=== PATIENT | female | born 2000 | race Caucasian/White ===

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

== ENCOUNTER 2023-06-10 12:02 | Inpatient (IN) ==
[2023-06-10] MEDS ORDERED: OXYTOCIN 30 UNITS/NSS 30 UNITS/500 ML BAG IV PRN (12:19)
[2023-06-10] MEDS ORDERED: LIDOCAINE 1% LOCAL 20 ML VIAL INFIL PRN (12:19)
[2023-06-10] MEDS: LACTATED RINGER'S 1,000 ML IV PRN (12:39)
[2023-06-10 12:54] LABS: Hematocrit (blood only) 36.1 % (37.0-47.0); Hemoglobin 11.9 g/dl (12.0-16.0); Mean Corpuscular Hemoglobin 27.3 pg (25.0-34.0); Mean Corpuscular Volume 82.8 fL (80.0-100.0); Mean Platelet Volume 10.6 fL (9.4-12.4); Platelet Count 253 K/uL (130-400); RDW Coefficient of Variation 14.4 % (11.5-14.5); Red Blood Count 4.36 M/uL (4.20-5.40); White Blood Count 11.08 K/ul (4.8-10.8)
--- NOTE | 2023-06-10 13:24 | History & Physical Report ---
Date of Service June 10, 2023 Assessment & Plan (1) Supervision of normal intrauterine in primigravida: Plan Will admit patient to L&D for further monitoring and management VSS Fetus cat 1 EFW 64% (US from 01/20/23) Rh positive mother GBS negative Rubella immune Epidural prn Pitocin as needed Patient in agreement Admission and Anticipated Discharge Date Admission Date: June 10, 2023 History of Present Illness Chief Complaint: LABOR CHECK Primary Care Provider: Abbi Jhaveri MD Tati is a 22 y/o female with PMHx of PCOS who is currently at IUP 40 4/7 WGA with an EZEKIEL 06/06/23 as determined by US who is here for Labor check. Patient states that she has been feeling contractions every 7-8 minutes since 3 am this morning. She did not note a gush of fluid at this time. As the day went on, she was still feeling these contractions still approximately every 7-8 minutes but were gradually getting more intense. At around 8-9am she noted some watery discharge that did not feel like a gush of fluid, but was constant, meaning ankit ry time she would clean/dry herself, she would go to the bathroom again after a while and noted her underwear was full again. (+) movement (+) contractions (+) fluid loss (-) bloody show External FHT and external uterine monitors used * Category 1 tracing * Moderate FHT variability. Had regular appointments since 1st trimester. OB Labs: Blood Type O Positive 10/28/22 Antibody Screen NEGATIVE 10/28/22 Hemoglobin 11.5 g/dl (12.0-16.0) L 04/01/23 Hematocrit 33.4 % (37.0-47.0) L 04/01/23 Mean Corpuscular Volume 88.1 fL (80.0-100.0) 10/28/22 Platelet Count 268 K/uL (130-400) 10/28/22 Rubella IgG Antibody Immune (Immune) 10/28/22 Rapid Plasma Reagin Nonreactive (Nonreactive) 10/28/22 Hepatitis B Surface Antigen NEG (NEG) 10/22/17 Hepatitis B Surface Antigen. NON-REACTIVE (NON-REACTIVE) 10/28/22 Hepatitis C Antibody NEG (NEG) 10/22/17 Hepatitis C Antibody (EIA) NON-REACTIVE (NON-REACTIVE) 10/28/22 HIV (1&2) Ab and P24 Ag, 4th Gener NEG (NEG) 10/22/17 HIV (1&2) Ag and Ab Confirmation NON-REACTIVE (NON-REACTIVE) 10/28/22 Glucose 1 Hour 50 gm Load 148 mg/dl (70-130) H 12/23/22 Maternal Serum Alpha Fetoprotein 31.7 ng/mL 12/23/22 OB Optional Labs: Chlamydia trachomatis RNA Not Detected (NotDetected) 10/28/22 Neisseria gonorrhoeae RNA Not Detected (NotDetected) 10/28/22 Alpha Fetoprotein Triple Screen SEE NOTE 12/23/22 Labs Reviewed: horizon neg-akh low risk panorama--akh afp neg--akh Allergies Allergy/AdvReac Type Severity Reaction Status Date / Time No Known Drug Allergies Allergy Verified 06/09/23 14:00 Home Medications Medication Instructions Recorded Confirmed Type vit 168-iron 27 mg-folic cap PO 10/22/22 06/09/23 History acid 800 mcg-omega3 235 mg capsule (One-A-Day -1) aspirin 81 mg chewable tablet 81 mg PO DAILY 04/19/23 06/10/23 History Patient History Medical History (Updated 06/10/23 @ 13:21 by Erendira Rios MD) Supervision of normal intrauterine in primigravida PCOS (polycystic ovarian syndrome) Eczema Dysmenorrhea Allergic rhinitis Adjustment reaction with anxiety and depression Surgical History S/P tonsillectomy and adenoidectomy Family History Aunt Type 1 diabetes mellitus Ovarian cyst Unknown Hemorrhagic stroke Mother History of brain surgery Abused spouse Epilepsy Bipolar disorder Primary nocturnal enuresis Father Alcoholism Degeneration of thoracic or thoracolumbar intervertebral disc Grandmother Breast cancer Heart murmur Hypertension Thyroid disease Depression with anxiety Family/Other Breast cancer Social History (Updated 06/10/23 @ 12:23 by Adelaida Vincent, ANTWON) Smoking Status: Never smoker Second Hand Exposure: Yes (AUNT OUTSIDE); Do You Dip or Chew Tobacco: No; Hx Alcohol Use: No Hx Substance Use: No Preferred Language: Korean Communication Ability: Effective 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 Beliefs That Will Affect Care: None marital status: marital status details: Mandeep (23) [phone] Current Living Situation: Spouse Current Living Situation Comment: lives with spouse, 1 cat, 1 dog, sis in law changing litter current occupational status: employed and unemployed 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 Other Information That Helps Us Care for You: No Feels Safe at Home: Yes Safety Concerns: Feels Safe At This Time Childhood Exposure to Second-Hand Smoke: Yes Dental Care, Regularly: Yes Seatbelt Use: always Sunscreen Use: Yes Assistive Devices: None 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 Denies shortness of breath or respiratory difficulty. no chest pain and no palpitations no dysuria no headache(s) Physical Exam Physical Exam: General: Alert, oriented x3. Afebrile. No acute distress. Cardiac: Regular rate and rhythm, no murmurs/rubs/gallops. Respiratory: Clear to auscultation bilaterally a/p, no wheezes/rales/rhonchi. No increased work of breathing. Symmetrical chest rise. No respiratory distress. Abdomen: Gravid; FHR baseline of 135 - 140 bpm; Position: Vertex Pelvic: 4.5 / 80 / -[address] Mclaughlin Lower Extremities: Mild bilateral LE swelling. No deep calf pain. Tigist's negative bilaterally Results & Data Vital Signs (Past 12 Hours) Vital Signs Temp Pulse Resp BP Pulse Ox 06/10/23 13:11 76 100 06/10/23 12:25 36.5 C 20 06/10/23 12:21 86 112/72 Supervising Physician Co-Signing Physician Notes Resident Physician Supervision Note: I was present with [Name of resident] during the history and exam. I discussed the case with the resident and agree with the findings and plan as documented in the note. Any exceptions or clarifications are listed here: [None] Documented By: Alvin Mclaughlin MD, FACOG
[2023-06-10] MEDS: LIDOCAINE 2%/EPINEPHRINE 1:200,000 20 ML PF ONE (13:33)
[2023-06-10] MEDS: BUPIVACAINE 0.25% PF 30 ML VIAL ONE (13:35)
[2023-06-10] MEDS: fentANYL 2 MCG/ML BUPIVacaine 0.125%-NSS 100ML BAG ONE (13:36)
[2023-06-10] MEDS: SODIUM CHLORIDE 0.9% PF INJ 10 ML VIAL ONE (13:36)
[2023-06-10] MEDS ORDERED: LIDOCAINE 2% MPF LOCAL 5 ML VIAL EPI PRN (13:43)
[2023-06-10] MEDS ORDERED: ONDANSETRON INJ 2 MG/ML 2 ML VIAL IV PRN (13:43)
[2023-06-10] MEDS ORDERED: diphenhydrAMINE 50 MG/ML VIAL IV PRN (13:43)
[2023-06-10] MEDS ORDERED: NALBUPHINE HCL 5 MG in SYRINGE 0 ML IV PRN (13:43)
[2023-06-10] MEDS ORDERED: ePHEDrine sulfate 50 MG/ML AMP IV PRN (13:43)
[2023-06-10] MEDS ORDERED: fentaNYL citrate PF 100 MCG/2 ML VIAL EPI PRN (13:43)
[2023-06-10] MEDS ORDERED: SODIUM CHLORIDE 0.9% PF INJ 10 ML VIAL EPI PRN (13:43)
[2023-06-10] MEDS ORDERED: NALOXONE HCL 0.4 MG/1 ML VIAL/CARP IV PRN (13:43)
[2023-06-10] MEDS ORDERED: ROPIVACAINE 0.5% PF 5 MG/ML 20 ML VIAL EPI PRN (13:43)
[2023-06-10] MEDS ORDERED: BUPIVACAINE 0.25% PF 30 ML VIAL EPI PRN (13:43)
[2023-06-10] MEDS ORDERED: NALOXONE HCL 1 MG in SODIUM CHLORIDE 0.9% 1,000 ML IV PRN (13:43)
--- NOTE | 2023-06-10 13:43 | Anesthesiology Consultation ---
Date of Service June 10, 2023 Assessment & Plan Chart Review Chart Review: Patient NOT seen in Pre Admission Testing and Acceptable Risk for Labor Epidural Consults Requested none ASA ASA2 Proposed Anesthesia Anesthesia Type: Labor Epidural Risk / Benefits Reviewed With: PT / POA / Parent / Guardian, Accepts Plan and Informed Consent Obtained History Height/Weight Height: 5 ft Weight: 86.183 kg Allergies Allergy/AdvReac Type Severity Reaction Status Date / Time No Known Drug Allergies Allergy Verified 06/09/23 14:00 Medications Home Medications Medication Instructions Recorded Confirmed Last Taken vit 168-iron 27 mg-folic cap PO 10/22/22 06/09/23 06/09/23 acid 800 mcg-omega3 235 mg capsule (One-A-Day -1) aspirin 81 mg chewable tablet 81 mg PO DAILY 04/19/23 06/10/23 06/09/23 Active Medications Generic Name Dose Route Start Last Admin Trade Name Freq PRN Reason Stop Dose Admin Lactated Ringer's 1,000 mls @ 125 mls/hr 06/10/23 12:19 06/10/23 13:31 Lr IV 06/12/23 12:18 999 mls/hr .Q8H PRN Administration L&D Protocol Protocol Past Medical History Medical History (Updated 06/10/23 @ 13:21 by Erendira Rios MD) Supervision of normal intrauterine in primigravida PCOS (polycystic ovarian syndrome) Eczema Dysmenorrhea Allergic rhinitis Adjustment reaction with anxiety and depression Exercise / Class Metabolic Activity II 4-5 Yardwork/Stairs/Walk up hill Past Family History Family History Aunt Type 1 diabetes mellitus Ovarian cyst Unknown Hemorrhagic stroke Mother History of brain surgery Abused spouse Epilepsy Bipolar disorder Primary nocturnal enuresis Father Alcoholism Degeneration of thoracic or thoracolumbar intervertebral disc Grandmother Breast cancer Heart murmur Hypertension Thyroid disease Depression with anxiety Family/Other Breast cancer Past Surgical History Surgical History S/P tonsillectomy and adenoidectomy Past Anesthesia History No Hx of Anesthesia Complications and No Family Hx of Anesthesia Complications History of PONV No Hx of PONV and No Hx of Motion Sickness Social History Smoking Status: Never smoker Do You Dip or Chew Tobacco: No Hx Alcohol Use: No Hx Substance Use: No Physical Exam Vital Signs Last Vital Signs Temp 36.5 C 06/10/23 12:25 Pulse 91 H 06/10/23 13:42 Resp 20 06/10/23 12:25 BP 113/54 L 06/10/23 13:42 Pulse Ox 100 06/10/23 13:41 ENMT Mouth: no dentition abnormality Thyromental Distance: > or= 3.5 Finger Breadths Mallampati Class: II Neck normal visual inspection Respiratory normal respiratory effort Auscultation: lungs clear to auscultation bilaterally Cardiovascular Rate/Rhythm: regular rate and regular rhythm Psychiatric Orientation: alert Testing Laboratory Results 06/10/23 12:29 Blood Type O Positive 06/10/23 12:29 Antibody Screen NEGATIVE 06/10/23 12:29
[2023-06-10] MEDS: ePHEDrine sulfate 50 MG/ML AMP ONE (19:04)
[2023-06-10] MEDS: fentaNYL citrate PF 100 MCG/2 ML VIAL ONE (19:04)
[2023-06-10] MEDS: SODIUM CHLORIDE 0.9% PF INJ 10 ML VIAL EPI STA (19:05)
[2023-06-10] MEDS: LIDOCAINE 2%/EPINEPHRINE 1:200,000 20 ML PF EPI STA (19:05)
[2023-06-10] MEDS: BUPIVACAINE 0.25% PF 30 ML VIAL EPI STA (19:05)
[2023-06-10] MEDS: fentaNYL citrate PF 100 MCG/2 ML VIAL EPI STA (19:05)
[2023-06-10] MEDS: fentANYL 2 MCG/ML BUPIVacaine 0.125%-NSS 100ML BAG EPI PRN (21:48)
[2023-06-10] MEDS: OXYTOCIN 30 UNITS/NSS 30 UNITS/500 ML BAG IV PRN (22:50)
--- NOTE | 2023-06-11 01:46 | Labor Progress Brief Note ---
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 the next short period of time as she is since her third baby discussed in depth my concerns Assessment & Plan Admission and Anticipated Discharge Date Admission Date: June 10, 2023 Results & Data Vital Signs (Past 12 Hours) Vital Signs Temp Pulse Resp BP Pulse Ox 06/11/23 01:42 99 H 98 06/11/23 01:37 102 H 96 06/11/23 01:34 111 H 90 06/11/23 01:32 112 H 97 06/11/23 01:30 18 06/11/23 01:30 18 06/11/23 01:27 105 H 98 06/11/23 01:26 113 H 94 06/11/23 01:24 115 H 133/78 06/11/23 01:22 104 H 94 06/11/23 01:21 114 H 82 L 06/11/23 01:17 108 H 96 06/11/23 01:13 110 H 79 L 06/11/23 01:12 110 H 97 06/11/23 01:07 114 H 97 06/11/23 01:02 141 H 91 06/11/23 01:00 20 06/11/23 01:00 20 06/11/23 01:00 20 06/11/23 01:00 20 06/11/23 00:57 117 H 94 06/11/23 00:52 97 06/11/23 00:52 115 H 06/11/23 00:52 126 H 129/69 06/11/23 00:47 122 H 97 06/11/23 00:42 117 H 98 06/11/23 00:41 123 H 91 06/11/23 00:38 125 H 115/76 06/11/23 00:36 112 H 95 06/11/23 00:31 111 H 100 06/11/23 00:30 16 06/11/23 00:30 98.4 F 16 06/11/23 00:29 72 93 06/11/23 00:26 53 L 99 06/11/23 00:22 58 L 111/66 06/11/23 00:21 74 98 06/11/23 00:16 60 99 06/11/23 00:11 56 L 100 06/11/23 00:10 64 94 06/11/23 00:08 56 L 113/70 06/11/23 00:06 54 L 100 06/11/23 00:03 63 94 06/11/23 00:01 58 L 108/75 97 06/11/23 00:00 18 06/11/23 00:00 98.4 F 18 06/10/23 23:56 57 L 99 06/10/23 23:51 69 96 06/10/23 23:46 56 L 99 06/10/23 23:43 66 87 L 06/10/23 23:41 65 100 06/10/23 23:37 56 L 92 06/10/23 23:36 54 L 99 06/10/23 23:31 59 L 98 06/10/23 23:30 16 06/10/23 23:30 16 06/10/23 23:29 61 91 06/10/23 23:26 58 L 99 06/10/23 23:21 56 L 99 06/10/23 23:16 58 L 99 06/10/23 23:11 59 L 99 06/10/23 23:06 56 L 99 06/10/23 23:01 68 97 06/10/23 23:00 16 06/10/23 23:00 98.8 F 16 06/10/23 22:56 79 100 06/10/23 22:53 82 112/61 06/10/23 22:52 71 93 06/10/23 22:51 60 98 06/10/23 22:46 56 L 97 06/10/23 22:41 59 L 99 06/10/23 22:40 56 L 93 06/10/23 22:37 57 L 105/56 L 06/10/23 22:36 60 98 06/10/23 22:33 53 L 93 06/10/23 22:31 58 L 94 06/10/23 22:28 54 L 94 06/10/23 22:26 55 L 96 06/10/23 22:24 55 L 106/55 L 06/10/23 22:21 59 L 97 06/10/23 22:16 59 L 98 06/10/23 22:11 61 98 06/10/23 22:08 58 L 110/58 L 06/10/23 22:06 62 96 06/10/23 22:01 56 L 98 06/10/23 22:00 18 06/10/23 22:00 18 06/10/23 21:56 62 97 06/10/23 21:52 67 100/55 L 06/10/23 21:51 66 96 06/10/23 21:46 61 98 06/10/23 21:41 63 98 06/10/23 21:39 18 06/10/23 21:39 18 06/10/23 21:36 63 98 06/10/23 21:31 82 99 06/10/23 21:30 16 06/10/23 21:30 16 06/10/23 21:26 88 96 06/10/23 21:24 102 H 129/68 06/10/23 21:21 97 H 98 06/10/23 21:16 105 H 98 06/10/23 21:11 110 H 97 06/10/23 21:07 103 H 151/81 H 06/10/23 21:06 109 H 98 06/10/23 21:02 115 H 91 06/10/23 21:01 103 H 95 06/10/23 21:00 16 06/10/23 21:00 16 06/10/23 20:56 91 H 99 06/10/23 20:53 110 H 119/70 06/10/23 20:51 101 H 99 06/10/23 20:49 109 H 93 06/10/23 20:46 93 H 99 06/10/23 20:41 102 H 99 06/10/23 20:37 76 116/64 06/10/23 20:36 88 99 06/10/23 20:31 105 H 97 06/10/23 20:30 16 06/10/23 20:30 98.1 F 16 06/10/23 20:29 120 H 111/58 L 06/10/23 20:27 106 H 97 06/10/23 20:23 89 113/59 L 06/10/23 20:22 120 H 100 06/10/23 20:17 96 H 97 06/10/23 20:12 61 93 06/10/23 20:07 75 113/65 06/10/23 20:06 77 100 06/10/23 20:02 62 100 06/10/23 20:00 18 06/10/23 20:00 18 06/10/23 19:57 70 99 06/10/23 19:56 60 93 06/10/23 19:52 58 L 99 06/10/23 19:47 65 98 06/10/23 19:42 77 99 06/10/23 19:37 64 99 06/10/23 19:32 62 98 06/10/23 19:30 18 06/10/23 19:30 18 06/10/23 19:27 67 98 06/10/23 19:23 74 119/83 06/10/23 19:22 70 06/10/23 19:22 66 119/78 96 06/10/23 19:17 60 99 06/10/23 19:12 59 L 99 06/10/23 19:10 18 06/10/23 19:10 98.1 F 18 06/10/23 19:09 57 L 100/59 L 06/10/23 19:08 69 95/64 L 06/10/23 19:07 63 98 06/10/23 19:06 64 93 06/10/23 19:02 58 L 98 06/10/23 18:57 62 99 06/10/23 18:55 69 94 06/10/23 18:53 56 L 111/61 06/10/23 18:52 56 L 98 06/10/23 18:47 54 L 99 06/10/23 18:42 59 L 98 06/10/23 18:37 64 06/10/23 18:37 55 L 106/65 97 06/10/23 18:32 63 98 06/10/23 18:27 86 98 06/10/23 18:26 85 94 06/10/23 18:22 78 20 99 06/10/23 18:17 89 98 06/10/23 18:12 59 L 99 06/10/23 18:08 62 116/76 06/10/23 18:07 65 99 06/10/23 18:02 67 99 06/10/23 18:00 20 06/10/23 18:00 20 06/10/23 17:56 63 98 06/10/23 17:54 80 107/59 L 06/10/23 17:52 65 98 06/10/23 17:47 72 98 06/10/23 17:42 67 97 06/10/23 17:38 76 118/66 06/10/23 17:37 67 96 06/10/23 17:31 83 98 06/10/23 17:26 67 98 06/10/23 17:22 79 125/85 06/10/23 17:21 71 97 06/10/23 17:16 75 97 06/10/23 17:11 77 98 06/10/23 17:08 72 20 121/73 06/10/23 17:06 69 99 06/10/23 17:05 72 92 06/10/23 17:01 76 99 06/10/23 16:56 74 98 06/10/23 16:53 80 119/81 06/10/23 16:51 82 100 06/10/23 16:46 80 100 06/10/23 16:41 73 99 06/10/23 16:38 98.6 F 70 20 106/56 L 06/10/23 16:36 58 L 98 06/10/23 16:31 59 L 98 06/10/23 16:26 62 98 06/10/23 16:23 58 L 20 105/57 L 06/10/23 16:21 57 L 98 06/10/23 16:16 59 L 99 06/10/23 16:11 61 99 06/10/23 16:08 70 106/63 06/10/23 16:06 57 L 100 06/10/23 16:01 59 L 100 06/10/23 15:56 65 99 06/10/23 15:54 71 89 L 06/10/23 15:53 81 107/57 L 06/10/23 15:51 64 100 06/10/23 15:47 62 94 06/10/23 15:46 66 100 06/10/23 15:41 63 100 06/10/23 15:40 66 94 06/10/23 15:37 76 20 102/55 L 06/10/23 15:36 62 100 06/10/23 15:31 79 98 06/10/23 15:30 20 06/10/23 15:30 98.6 F 20 06/10/23 15:26 62 100 06/10/23 15:23 79 100/60 06/10/23 15:22 68 90 06/10/23 15:21 71 97 06/10/23 15:16 68 100 06/10/23 15:14 75 91 06/10/23 15:11 67 100 06/10/23 15:08 73 101/55 L 06/10/23 15:06 78 100 06/10/23 15:01 59 L 100 06/10/23 14:56 75 100 06/10/23 14:54 73 107/56 L 06/10/23 14:51 73 99 06/10/23 14:46 91 H 98 06/10/23 14:41 78 100 06/10/23 14:38 75 129/82 06/10/23 14:36 67 100 06/10/23 14:31 88 100 06/10/23 14:26 78 100 06/10/23 14:23 74 93 06/10/23 14:22 76 111/65 06/10/23 14:21 65 100 06/10/23 14:16 71 100 06/10/23 14:11 75 100 06/10/23 14:06 98.2 F 82 20 120/63 100 06/10/23 14:04 76 123/72 06/10/23 14:02 69 124/74 06/10/23 14:01 91 H 100 06/10/23 14:00 134 H 18 116/69 06/10/23 13:58 73 18 116/64 06/10/23 13:56 81 18 116/59 L 100 06/10/23 13:54 82 18 115/64 06/10/23 13:53 82 126/64 06/10/23 13:51 81 100 06/10/23 13:50 83 18 106/51 L 06/10/23 13:48 76 120/56 L 06/10/23 13:46 91 H 18 119/57 L 100 Coding Level of Care Code None
--- NOTE | 2023-06-11 03:22 | Labor Progress Brief Note ---
Date of Service June 11, 2023 Note patient reaches exhaustion on pushing baby is occiput posterior palpation +2 station I did offer the patient vacuum and she agreed I did offer as well I discussed sometimes vacuum would fail to get the baby out but with that we could attempt and the patient agreed. Risks of vacuum discussed bladder was drained first the station was +2 the vacuum was applied for a total of 2 contractions first time was a pop-off and second time was not however there was no movement of the presenting part on either attempt. Thus I do not think it is going to come the attempt was aborted there was a small tear on the labia repaired with 3-0 Vicryl we will proceed to section We discussed the risks of including bleeding infection injury to internal organs and the baby deep vein thrombosis and pulmonary embolus we also discussed increased infection risk with labor and Assessment & Plan Admission and Anticipated Discharge Date Admission Date: June 10, 2023 Results & Data Vital Signs (Past 12 Hours) Vital Signs Temp Pulse Resp BP Pulse Ox 06/11/23 03:08 144 H 121/63 06/11/23 02:53 101 H 132/72 06/11/23 02:41 80 89 L 06/11/23 02:39 76 98 06/11/23 02:35 88 93 06/11/23 02:34 65 100 06/11/23 02:28 91 H 97 06/11/23 02:26 103 H 93 06/11/23 02:23 79 97 06/11/23 02:18 107 H 93 06/11/23 02:12 122 H 95 06/11/23 02:07 73 116/71 97 06/11/23 02:05 86 93 06/11/23 02:03 83 113/73 06/11/23 02:02 81 96 06/11/23 02:00 18 06/11/23 02:00 18 06/11/23 01:57 143 H 70 L 06/11/23 01:52 131 H 98 06/11/23 01:47 63 98 06/11/23 01:46 120 H 87 L 06/11/23 01:45 18 06/11/23 01:45 18 06/11/23 01:42 99 H 98 06/11/23 01:37 102 H 96 06/11/23 01:34 111 H 90 06/11/23 01:32 112 H 97 06/11/23 01:30 18 06/11/23 01:30 18 06/11/23 01:27 105 H 98 06/11/23 01:26 113 H 94 06/11/23 01:24 115 H 133/78 06/11/23 01:22 104 H 94 06/11/23 01:21 114 H 82 L 06/11/23 01:17 108 H 96 06/11/23 01:13 110 H 79 L 06/11/23 01:12 110 H 97 06/11/23 01:07 114 H 97 06/11/23 01:02 141 H 91 06/11/23 01:00 20 06/11/23 01:00 20 06/11/23 01:00 20 06/11/23 01:00 20 06/11/23 00:57 117 H 94 06/11/23 00:52 97 06/11/23 00:52 115 H 06/11/23 00:52 126 H 129/69 06/11/23 00:47 122 H 97 06/11/23 00:42 117 H 98 06/11/23 00:41 123 H 91 06/11/23 00:38 125 H 115/76 06/11/23 00:36 112 H 95 06/11/23 00:31 111 H 100 06/11/23 00:30 16 06/11/23 00:30 98.4 F 16 06/11/23 00:29 72 93 06/11/23 00:26 53 L 99 06/11/23 00:22 58 L 111/66 06/11/23 00:21 74 98 06/11/23 00:16 60 99 06/11/23 00:11 56 L 100 06/11/23 00:10 64 94 06/11/23 00:08 56 L 113/70 06/11/23 00:06 54 L 100 06/11/23 00:03 63 94 06/11/23 00:01 58 L 108/75 97 06/11/23 00:00 18 06/11/23 00:00 98.4 F 18 06/10/23 23:56 57 L 99 06/10/23 23:51 69 96 06/10/23 23:46 56 L 99 06/10/23 23:43 66 87 L 06/10/23 23:41 65 100 06/10/23 23:37 56 L 92 06/10/23 23:36 54 L 99 06/10/23 23:31 59 L 98 06/10/23 23:30 16 06/10/23 23:30 16 06/10/23 23:29 61 91 06/10/23 23:26 58 L 99 06/10/23 23:21 56 L 99 06/10/23 23:16 58 L 99 06/10/23 23:11 59 L 99 06/10/23 23:06 56 L 99 06/10/23 23:01 68 97 06/10/23 23:00 16 06/10/23 23:00 98.8 F 16 06/10/23 22:56 79 100 06/10/23 22:53 82 112/61 06/10/23 22:52 71 93 06/10/23 22:51 60 98 06/10/23 22:46 56 L 97 06/10/23 22:41 59 L 99 06/10/23 22:40 56 L 93 06/10/23 22:37 57 L 105/56 L 06/10/23 22:36 60 98 06/10/23 22:33 53 L 93 06/10/23 22:31 58 L 94 06/10/23 22:28 54 L 94 06/10/23 22:26 55 L 96 06/10/23 22:24 55 L 106/55 L 06/10/23 22:21 59 L 97 06/10/23 22:16 59 L 98 06/10/23 22:11 61 98 06/10/23 22:08 58 L 110/58 L 06/10/23 22:06 62 96 06/10/23 22:01 56 L 98 06/10/23 22:00 18 06/10/23 22:00 18 06/10/23 21:56 62 97 06/10/23 21:52 67 100/55 L 06/10/23 21:51 66 96 06/10/23 21:46 61 98 06/10/23 21:41 63 98 06/10/23 21:39 18 06/10/23 21:39 18 06/10/23 21:36 63 98 06/10/23 21:31 82 99 06/10/23 21:30 16 06/10/23 21:30 16 06/10/23 21:26 88 96 06/10/23 21:24 102 H 129/68 06/10/23 21:21 97 H 98 06/10/23 21:16 105 H 98 06/10/23 21:11 110 H 97 06/10/23 21:07 103 H 151/81 H 06/10/23 21:06 109 H 98 06/10/23 21:02 115 H 91 06/10/23 21:01 103 H 95 06/10/23 21:00 16 06/10/23 21:00 16 06/10/23 20:56 91 H 99 06/10/23 20:53 110 H 119/70 06/10/23 20:51 101 H 99 06/10/23 20:49 109 H 93 06/10/23 20:46 93 H 99 06/10/23 20:41 102 H 99 06/10/23 20:37 76 116/64 06/10/23 20:36 88 99 06/10/23 20:31 105 H 97 06/10/23 20:30 16 06/10/23 20:30 98.1 F 16 06/10/23 20:29 120 H 111/58 L 06/10/23 20:27 106 H 97 06/10/23 20:23 89 113/59 L 06/10/23 20:22 120 H 100 06/10/23 20:17 96 H 97 06/10/23 20:12 61 93 06/10/23 20:07 75 113/65 06/10/23 20:06 77 100 06/10/23 20:02 62 100 06/10/23 20:00 18 06/10/23 20:00 18 06/10/23 19:57 70 99 06/10/23 19:56 60 93 06/10/23 19:52 58 L 99 06/10/23 19:47 65 98 06/10/23 19:42 77 99 06/10/23 19:37 64 99 06/10/23 19:32 62 98 06/10/23 19:30 18 06/10/23 19:30 18 06/10/23 19:27 67 98 06/10/23 19:23 74 119/83 06/10/23 19:22 70 06/10/23 19:22 66 119/78 96 06/10/23 19:17 60 99 06/10/23 19:12 59 L 99 06/10/23 19:10 18 06/10/23 19:10 98.1 F 18 06/10/23 19:09 57 L 100/59 L 06/10/23 19:08 69 95/64 L 06/10/23 19:07 63 98 06/10/23 19:06 64 93 06/10/23 19:02 58 L 98 06/10/23 18:57 62 99 06/10/23 18:55 69 94 06/10/23 18:53 56 L 111/61 06/10/23 18:52 56 L 98 06/10/23 18:47 54 L 99 06/10/23 18:42 59 L 98 06/10/23 18:37 64 06/10/23 18:37 55 L 106/65 97 06/10/23 18:32 63 98 06/10/23 18:27 86 98 06/10/23 18:26 85 94 06/10/23 18:22 78 20 99 06/10/23 18:17 89 98 06/10/23 18:12 59 L 99 06/10/23 18:08 62 116/76 06/10/23 18:07 65 99 06/10/23 18:02 67 99 06/10/23 18:00 20 06/10/23 18:00 20 06/10/23 17:56 63 98 06/10/23 17:54 80 107/59 L 06/10/23 17:52 65 98 06/10/23 17:47 72 98 06/10/23 17:42 67 97 06/10/23 17:38 76 118/66 06/10/23 17:37 67 96 06/10/23 17:31 83 98 06/10/23 17:26 67 98 06/10/23 17:22 79 125/85 06/10/23 17:21 71 97 06/10/23 17:16 75 97 06/10/23 17:11 77 98 06/10/23 17:08 72 20 121/73 06/10/23 17:06 69 99 06/10/23 17:05 72 92 06/10/23 17:01 76 99 06/10/23 16:56 74 98 06/10/23 16:53 80 119/81 03/28/24 16:51 82 100 06/10/23 16:46 80 100 06/10/23 16:41 73 99 06/10/23 16:38 98.6 F 70 20 106/56 L 06/10/23 16:36 58 L 98 06/10/23 16:31 59 L 98 06/10/23 16:26 62 98 06/10/23 16:23 58 L 20 105/57 L 06/10/23 16:21 57 L 98 06/10/23 16:16 59 L 99 06/10/23 16:11 61 99 06/10/23 16:08 70 106/63 06/10/23 16:06 57 L 100 06/10/23 16:01 59 L 100 06/10/23 15:56 65 99 06/10/23 15:54 71 89 L 06/10/23 15:53 81 107/57 L 06/10/23 15:51 64 100 06/10/23 15:47 62 94 06/10/23 15:46 66 100 06/10/23 15:41 63 100 06/10/23 15:40 66 94 06/10/23 15:37 76 20 102/55 L 06/10/23 15:36 62 100 06/10/23 15:31 79 98 06/10/23 15:30 20 06/10/23 15:30 98.6 F 20 06/10/23 15:26 62 100 06/10/23 15:23 79 100/60 06/10/23 15:22 68 90 06/10/23 15:21 71 97 Coding Level of Care Code None
[2023-06-11] MEDS: ceFAZolin 2000MG 2,000 MG/15 ML SYR IV ONE (03:30)
[2023-06-11] MEDS ORDERED: fentaNYL citrate PF 100 MCG/2 ML VIAL ONE (03:30)
[2023-06-11] MEDS ORDERED: PROPOFOL IV EMULSION 10 MG/ML 20 ML VIAL IV ONE (03:30)
[2023-06-11] MEDS ORDERED: SUCCINYLCHOLINE 100MG/5ML SYR IV ONE (03:30)
[2023-06-11] MEDS ORDERED: LIDOCAINE 2% MPF LOCAL 5 ML VIAL ONE (03:30)
[2023-06-11] MEDS ORDERED: ONDANSETRON INJ 2 MG/ML 2 ML VIAL ONE (03:59)
[2023-06-11] MEDS ORDERED: KETOROLAC 30 MG/ML VIAL ONE (03:59)
[2023-06-11] MEDS ORDERED: OXYTOCIN 10 UNITS/ML VIAL ONE (03:59)
[2023-06-11] MEDS ORDERED: MoRPHine SULFATE PF 1 MG/ML 10 ML AMP/VIAL ONE (04:03)
--- NOTE | 2023-06-11 04:25 | Operative Report ---
PG Post Operative Report Pre & Post Diagnosis Failure to progressed failed trial of vacuum I identified the patient and participated in the time-out.: Yes Procedure Low segment transverse section Surgeon Alvin Mclaughlin MD, FACOG Tape Keller Operator Dr. Orona Estimated Blood Loss 600 Findings Consistent with Post-Op Diagnosis Specimens Cord gases cord blood Description of Procedure General anesthetic had been given by anesthesia patient was prepped and draped with a leftward tilt preoperative antibiotics had been given in appropriate timing by anesthesiology. Once the prep was allowed to fully dry timeout was performed. Scalpel was used to make a Pfannenstiel incision on the lower abdomen. We then cut through the subcutaneous fat down to the level of the anterior rectus sheath fascia this was cut in the midline and then extended laterally with the curved Dasilva scissors. At this stage we then placed 2 Oz clamps on the anterior aspect of the fascia. Using the curved Dasilva's we are able to dissect the fascia superiorly away from the rectus muscles. Care was taken to maintain hemostasis. Oz clamps were then placed to the inferior aspect of the anterior sheath of the fascia. Fascia was then dissected away from the rectus muscles inferiorly towards the pubic bone. A Oz was then placed in the midline both inferiorly and superiorly. This was to allow exposure by retraction rectus muscles were in the midline with were then able to cut through the peritoneum and then enter the peritoneal cavity. Opening was enlarged to allow exposure of the peritoneal cavity both superiorly and inferiorly. Once adequate space was obtained a bladder retractor was placed to expose the lower segment Metzenbaums were used to dissect the bladder flap inferiorly away from the uterus. This was done sharply bladder retractor was then repositioned to expose the lower segment of the uterus Fresh scalpel was used to make a low transverse incision on the uterus. Uterus was then entered bluntly with the operators finger, membranes ruptured and the opening was enlarged using the operators fingers bluntly pulling superiorly and inferiorly to allow exposure. Note baby was direct occiput posterior. We avoided extensions on delivery Baby was delivered by first flexion of the head elevation of the head out of the pelvis and then pressure by the research lab assistant on the maternal abdomen. Baby's head was then delivered mouth and then nares were suctioned and then using gentle traction the baby was fully delivered. Live vigorous . Fluid was clear cord clamped and cut cord gases obtained cord blood obtained baby handed to pediatrics. Placenta removed was removed with traction we ensure the entire placenta was removed with a moist lap sponge into the uterus Uterus was then exteriorized. IV Pitocin had been started by anesthesia tone improved there were no extensions the uterus was then closed using 0 Monocryl in a 2 layer closure the first layer closed in a running locked fashion from left to right and then a second closure from left to right in a running nonlocked fashion. At this stage hemostasis was excellent. Uterus was placed back in the peritoneal cavity with suction irrigation out and inspection of the uterus at this stage revealed excellent hemostasis Retractors were removed urine color was clear at this stage of the case we inspected the rectus muscles they were hemostatic fascia was closed with 0 Vicryl subcutaneous fat was irrigated and closed with 3-0 Vicryl skin closed with 4-0 subcuticular Monocryl Adnexa appeared normal as did the uterus hari dressing applied I did inspect the vagina afterwards there was no bleeding and no tearing that was actively bleeding this was assessed from below I attest to the content of the Intraoperative Record and any orders documented therein. Any exceptions are noted below. OB Procedure Charges 92826
[2023-06-11] MEDS ORDERED: diphenhydrAMINE 50 MG/ML VIAL IV PRN ×2 (04:42→22:43)
[2023-06-11] MEDS ORDERED: ePHEDrine sulfate 50 MG/ML AMP IV PRN ×2 (04:42)
[2023-06-11] MEDS ORDERED: NALOXONE HCL 1 MG in SODIUM CHLORIDE 0.9% 1,000 ML IV PRN (04:42)
[2023-06-11] MEDS ORDERED: PROMETHAZINE HCL 6.25 MG in SODIUM CHLORIDE 0.9% 50 ML IV PRN (04:42)
[2023-06-11] MEDS ORDERED: ONDANSETRON INJ 2 MG/ML 2 ML VIAL IV PRN (04:42)
[2023-06-11] MEDS ORDERED: ATROPINE SULFATE 0.1 MG/ML 10ML SYR IV PRN (04:42)
[2023-06-11] MEDS ORDERED: NALBUPHINE HCL 5 MG in SYRINGE 0 ML IV PRN (04:42)
[2023-06-11] MEDS ORDERED: MoRPHine SULFATE 2 MG/ML CARP IV PRN (04:42)
[2023-06-11] MEDS ORDERED: fentaNYL citrate PF 100 MCG/2 ML VIAL IV PRN (04:42)
[2023-06-11] MEDS ORDERED: NALOXONE HCL 0.4 MG/1 ML VIAL/CARP IV PRN (04:42)
[2023-06-11] MEDS ORDERED: LACTATED RINGER'S 500 ML IV PRN (04:42)
[2023-06-11] MEDS ORDERED: NALOXONE HCL 0.08 MG in SYRINGE 1.8 ML IV PRN (04:42)
--- NOTE | 2023-06-11 04:42 | Anesthesia Procedure Note ---
Date of Service June 11, 2023 Anesthesia Post Epidural Note Vital Signs Vital Signs: Temp Pulse Resp BP Pulse Ox 36.9 C 110 H 18 108/71 88 L 06/11/23 00:30 06/11/23 04:31 06/11/23 02:00 06/11/23 04:31 06/11/23 03:28 Pain Intensity Lower Abdomen: Pain Intensity: 5 Notes Mental Status: alert / awake / arousable Nausea / Vomiting: adequately controlled Pain: adequately controlled Airway Patency, RR, SpO2: stable & adequate BP & HR: stable & adequate Hydration State: stable & adequate Neuraxial Anesthesia: was administered and sensory block is resolving Anesthetic Complications: no major complications apparent and Pt Satisfied with anesthetic care Epidural: Removed without complications and With tip intact
--- NOTE | 2023-06-11 04:44 | Anesthesiology Progress Note ---
Date of Service June 11, 2023 Anesthesia Post Procedure Vital Signs Vital Signs: Temp Pulse Resp BP Pulse Ox 06/11/23 04:31 110 H 108/71 06/11/23 03:28 125 H 88 L 06/11/23 03:23 127 H 86 L 06/11/23 03:08 144 H 121/63 06/11/23 02:53 101 H 132/72 06/11/23 02:41 80 89 L 06/11/23 02:39 76 98 06/11/23 02:35 88 93 06/11/23 02:34 65 100 06/11/23 02:28 91 H 97 06/11/23 02:26 103 H 93 06/11/23 02:23 79 97 06/11/23 02:18 107 H 93 06/11/23 02:12 122 H 95 06/11/23 02:07 73 116/71 97 06/11/23 02:05 86 93 06/11/23 02:03 83 113/73 06/11/23 02:02 81 96 06/11/23 02:00 18 06/11/23 02:00 18 06/11/23 01:57 143 H 70 L 06/11/23 01:52 131 H 98 06/11/23 01:47 63 98 06/11/23 01:46 120 H 87 L 06/11/23 01:45 18 06/11/23 01:45 18 06/11/23 01:42 99 H 98 06/11/23 01:37 102 H 96 06/11/23 01:34 111 H 90 06/11/23 01:32 112 H 97 06/11/23 01:30 18 06/11/23 01:30 18 06/11/23 01:27 105 H 98 06/11/23 01:26 113 H 94 06/11/23 01:24 115 H 133/78 06/11/23 01:22 104 H 94 06/11/23 01:21 114 H 82 L 06/11/23 01:17 108 H 96 06/11/23 01:13 110 H 79 L 06/11/23 01:12 110 H 97 06/11/23 01:07 114 H 97 06/11/23 01:02 141 H 91 06/11/23 01:00 20 06/11/23 01:00 20 06/11/23 01:00 20 06/11/23 01:00 20 06/11/23 00:57 117 H 94 06/11/23 00:52 97 06/11/23 00:52 115 H 06/11/23 00:52 126 H 129/69 06/11/23 00:47 122 H 97 06/11/23 00:42 117 H 98 06/11/23 00:41 123 H 91 06/11/23 00:38 125 H 115/76 06/11/23 00:36 112 H 95 06/11/23 00:31 111 H 100 06/11/23 00:30 16 06/11/23 00:30 36.9 C 16 06/11/23 00:29 72 93 06/11/23 00:26 53 L 99 06/11/23 00:22 58 L 111/66 06/11/23 00:21 74 98 06/11/23 00:16 60 99 06/11/23 00:11 56 L 100 06/11/23 00:10 64 94 06/11/23 00:08 56 L 113/70 06/11/23 00:06 54 L 100 06/11/23 00:03 63 94 06/11/23 00:01 58 L 108/75 97 06/11/23 00:00 18 06/11/23 00:00 36.9 C 18 06/10/23 23:56 57 L 99 06/10/23 23:51 69 96 06/10/23 23:46 56 L 99 06/10/23 23:43 66 87 L 06/10/23 23:41 65 100 06/10/23 23:37 56 L 92 06/10/23 23:36 54 L 99 06/10/23 23:31 59 L 98 06/10/23 23:30 16 06/10/23 23:30 16 06/10/23 23:29 61 91 06/10/23 23:26 58 L 99 06/10/23 23:21 56 L 99 06/10/23 23:16 58 L 99 06/10/23 23:11 59 L 99 06/10/23 23:06 56 L 99 06/10/23 23:01 68 97 06/10/23 23:00 16 06/10/23 23:00 37.1 C 16 06/10/23 22:56 79 100 06/10/23 22:53 82 112/61 06/10/23 22:52 71 93 06/10/23 22:51 60 98 06/10/23 22:46 56 L 97 06/10/23 22:41 59 L 99 06/10/23 22:40 56 L 93 06/10/23 22:37 57 L 105/56 L 06/10/23 22:36 60 98 06/10/23 22:33 53 L 93 06/10/23 22:31 58 L 94 06/10/23 22:28 54 L 94 06/10/23 22:26 55 L 96 06/10/23 22:24 55 L 106/55 L 06/10/23 22:21 59 L 97 06/10/23 22:16 59 L 98 06/10/23 22:11 61 98 06/10/23 22:08 58 L 110/58 L 06/10/23 22:06 62 96 06/10/23 22:01 56 L 98 06/10/23 22:00 18 06/10/23 22:00 18 06/10/23 21:56 62 97 06/10/23 21:52 67 100/55 L 06/10/23 21:51 66 96 06/10/23 21:46 61 98 06/10/23 21:41 63 98 06/10/23 21:39 18 06/10/23 21:39 18 06/10/23 21:36 63 98 06/10/23 21:31 82 99 06/10/23 21:30 16 06/10/23 21:30 16 06/10/23 21:26 88 96 06/10/23 21:24 102 H 129/68 06/10/23 21:21 97 H 98 06/10/23 21:16 105 H 98 06/10/23 21:11 110 H 97 06/10/23 21:07 103 H 151/81 H 06/10/23 21:06 109 H 98 06/10/23 21:02 115 H 91 06/10/23 21:01 103 H 95 06/10/23 21:00 16 06/10/23 21:00 16 06/10/23 20:56 91 H 99 06/10/23 20:53 110 H 119/70 06/10/23 20:51 101 H 99 06/10/23 20:49 109 H 93 06/10/23 20:46 93 H 99 06/10/23 20:41 102 H 99 06/10/23 20:37 76 116/64 06/10/23 20:36 88 99 06/10/23 20:31 105 H 97 06/10/23 20:30 16 06/10/23 20:30 36.7 C 16 06/10/23 20:29 120 H 111/58 L 06/10/23 20:27 106 H 97 06/10/23 20:23 89 113/59 L 06/10/23 20:22 120 H 100 06/10/23 20:17 96 H 97 06/10/23 20:12 61 93 06/10/23 20:07 75 113/65 06/10/23 20:06 77 100 06/10/23 20:02 62 100 06/10/23 20:00 18 06/10/23 20:00 18 06/10/23 19:57 70 99 06/10/23 19:56 60 93 06/10/23 19:52 58 L 99 06/10/23 19:47 65 98 06/10/23 19:42 77 99 06/10/23 19:37 64 99 06/10/23 19:32 62 98 06/10/23 19:30 18 06/10/23 19:30 18 06/10/23 19:27 67 98 06/10/23 19:23 74 119/83 06/10/23 19:22 70 06/10/23 19:22 66 119/78 96 06/10/23 19:17 60 99 06/10/23 19:12 59 L 99 06/10/23 19:10 18 06/10/23 19:10 36.7 C 18 06/10/23 19:09 57 L 100/59 L 06/10/23 19:08 69 95/64 L 06/10/23 19:07 63 98 06/10/23 19:06 64 93 06/10/23 19:02 58 L 98 06/10/23 18:57 62 99 06/10/23 18:55 69 94 06/10/23 18:53 56 L 111/61 06/10/23 18:52 56 L 98 06/10/23 18:47 54 L 99 06/10/23 18:42 59 L 98 06/10/23 18:37 64 06/10/23 18:37 55 L 106/65 97 06/10/23 18:32 63 98 06/10/23 18:27 86 98 06/10/23 18:26 85 94 06/10/23 18:22 78 20 99 06/10/23 18:17 89 98 06/10/23 18:12 59 L 99 06/10/23 18:08 62 116/76 06/10/23 18:07 65 99 06/10/23 18:02 67 99 06/10/23 18:00 20 06/10/23 18:00 20 06/10/23 17:56 63 98 06/10/23 17:54 80 107/59 L 06/10/23 17:52 65 98 06/10/23 17:47 72 98 06/10/23 17:42 67 97 06/10/23 17:38 76 118/66 06/10/23 17:37 67 96 06/10/23 17:31 83 98 06/10/23 17:26 67 98 06/10/23 17:22 79 125/85 06/10/23 17:21 71 97 06/10/23 17:16 75 97 06/10/23 17:11 77 98 06/10/23 17:08 72 20 121/73 06/10/23 17:06 69 99 06/10/23 17:05 72 92 06/10/23 17:01 76 99 06/10/23 16:56 74 98 06/10/23 16:53 80 119/81 06/10/23 16:51 82 100 06/10/23 16:46 80 100 06/10/23 16:41 73 99 06/10/23 16:38 37.0 C 70 20 106/56 L 06/10/23 16:36 58 L 98 06/10/23 16:31 59 L 98 06/10/23 16:26 62 98 06/10/23 16:23 58 L 20 105/57 L 06/10/23 16:21 57 L 98 06/10/23 16:16 59 L 99 06/10/23 16:11 61 99 06/10/23 16:08 70 106/63 06/10/23 16:06 57 L 100 06/10/23 16:01 59 L 100 06/10/23 15:56 65 99 06/10/23 15:54 71 89 L 06/10/23 15:53 81 107/57 L 06/10/23 15:51 64 100 06/10/23 15:47 62 94 06/10/23 15:46 66 100 06/10/23 15:41 63 100 06/10/23 15:40 66 94 06/10/23 15:37 76 20 102/55 L 06/10/23 15:36 62 100 06/10/23 15:31 79 98 06/10/23 15:30 20 06/10/23 15:30 37.0 C 20 06/10/23 15:26 62 100 06/10/23 15:23 79 100/60 06/10/23 15:22 68 90 06/10/23 15:21 71 97 06/10/23 15:16 68 100 06/10/23 15:14 75 91 06/10/23 15:11 67 100 06/10/23 15:08 73 101/55 L 06/10/23 15:06 78 100 06/10/23 15:01 59 L 100 06/10/23 14:56 75 100 06/10/23 14:54 73 107/56 L 06/10/23 14:51 73 99 06/10/23 14:46 91 H 98 06/10/23 14:41 78 100 06/10/23 14:38 75 129/82 06/10/23 14:36 67 100 06/10/23 14:31 88 100 06/10/23 14:26 78 100 06/10/23 14:23 74 93 06/10/23 14:22 76 111/65 06/10/23 14:21 65 100 06/10/23 14:16 71 100 06/10/23 14:11 75 100 06/10/23 14:06 36.8 C 82 20 120/63 100 06/10/23 14:04 76 123/72 06/10/23 14:02 69 124/74 06/10/23 14:01 91 H 100 06/10/23 14:00 134 H 18 116/69 06/10/23 13:58 73 18 116/64 06/10/23 13:56 81 18 116/59 L 100 06/10/23 13:54 82 18 115/64 06/10/23 13:53 82 126/64 06/10/23 13:51 81 100 06/10/23 13:50 83 18 106/51 L 06/10/23 13:48 76 120/56 L 06/10/23 13:46 91 H 18 119/57 L 100 06/10/23 13:44 82 18 115/56 L 06/10/23 13:42 91 H 113/54 L 06/10/23 13:41 88 100 06/10/23 13:40 96 H 18 116/56 L 06/10/23 13:38 82 118/57 L 06/10/23 13:36 20 06/10/23 13:36 99 06/10/23 13:36 80 06/10/23 13:36 86 18 115/59 L 06/10/23 13:32 73 18 113/64 06/10/23 13:31 78 100 06/10/23 13:30 75 133/74 06/10/23 13:26 92 H 100 06/10/23 13:21 79 99 06/10/23 13:16 73 100 06/10/23 13:11 76 100 06/10/23 12:25 36.5 C 20 06/10/23 12:21 86 112/72 Pain Intensity Lower Abdomen: Pain Intensity: 5 Transfer of Care Handoff Completed per policy Notes Mental Status: alert / awake / arousable Patient Amnestic to Procedure: Yes Nausea / Vomiting: adequately controlled Pain: adequately controlled Airway Patency, RR, SpO2: stable & adequate BP & HR: stable & adequate Hydration State: stable & adequate Anesthetic Complications: no major complications apparent
[2023-06-11] MEDS ORDERED: DC INTRASPINAL MORPHINE SCH (04:45)
[2023-06-11] MEDS ORDERED: NO NARCOTICS OR SEDATIVES SCH (04:45)
[2023-06-11] MEDS ORDERED: MAGNESIUM HYDROXIDE SUSP 30 ML UDC PO PRN (05:34)
[2023-06-11] MEDS ORDERED: SENNA 8.6 MG TAB PO PRN (05:34)
[2023-06-11] MEDS ORDERED: HYDROCORTISONE ACETATE 25 MG SUPP PR PRN (05:34)
[2023-06-11] MEDS: HYDROmorphone INJ 0.5 MG/0.5 ML SYR IV PRN (05:35)
[2023-06-11] MEDS: MEPERIDINE HCL 25 MG/ML CARP/VIAL IV PRN (06:34)
[2023-06-11] MEDS: DIPHTHER/TETAN/PERTUS Vaccine (Tdap, Adol/Adult) 0.5mL IM ONE (07:34)
[2023-06-11] MEDS: SIMETHICONE 80 MG CHEW PO SCH (07:40)
[2023-06-11] MEDS: FERROUS SULFATE 325 MG TAB PO SCH (07:40)
[2023-06-11] MEDS: OXYTOCIN 20 UNITS/LR 1,002 ML IV SCH (07:40)
[2023-06-11] MEDS: DOCUSATE SODIUM 100 MG CAP PO SCH (07:40)
[2023-06-11] MEDS: PRENATAL VITAMIN 1 TAB PO SCH (07:40)
[2023-06-11 07:45] LABS: Basophils # (auto) 0.03 K/uL (0.00-0.20); Basophils % (auto) 0.3 %; Hematocrit (blood only) 29.7 % (37.0-47.0); Hemoglobin 9.7 g/dl (12.0-16.0); Immature Granulocytes # (auto) 0.01 K/uL (0.01-0.20); Immature Granulocytes % (auto) 0.1 %; Lymphocytes % (auto) 8.2 %; Mean Corpuscular Hemoglobin 27.2 pg (25.0-34.0); Mean Corpuscular Hgb Conc 32.7 g/dL (32.0-36.0); Mean Corpuscular Volume 83.2 fL (80.0-100.0); Mean Platelet Volume 10.9 fL (9.4-12.4); Monocytes # (auto) 0.43 K/uL (0.11-0.59); Monocytes % (auto) 3.9 %; Neutrophils # (auto) 9.63 K/uL (1.40-6.50); Neutrophils % (auto) 87.5 %; Platelet Count 178 K/uL (130-400); RDW Coefficient of Variation 14.5 % (11.5-14.5); RDW Standard Deviation 43.8 fL (36.4-46.3); Red Blood Count 3.57 M/uL (4.20-5.40)
[2023-06-11] MEDS: KETOROLAC 30 MG/ML VIAL IV PRN (09:08)
[2023-06-11] MEDS: ONDANSETRON INJ 2 MG/ML 2 ML VIAL IV PRN (20:05)
[2023-06-11] MEDS ORDERED: PROMETHAZINE HCL 25 MG in SODIUM CHLORIDE 0.9% 50 ML IV PRN (22:43)
[2023-06-11] MEDS ORDERED: diphenhydrAMINE Capsule 25 MG CAP PO PRN (22:43)
[2023-06-12] MEDS: ONDANSETRON INJ 2 MG/ML 2 ML VIAL IV PRN (00:42)
[2023-06-12] MEDS: FAMOTIDINE 20 MG TAB PO PRN (06:24)
[2023-06-12] MEDS: LACTATED RINGER'S 1,000 ML IV SCH (06:24)
[2023-06-12 06:58] LABS: Hematocrit (blood only) 28.4 % (37.0-47.0); Hemoglobin 9.5 g/dl (12.0-16.0); Mean Corpuscular Hemoglobin 27.3 pg (25.0-34.0); Mean Corpuscular Hgb Conc 33.5 g/dL (32.0-36.0); Mean Corpuscular Volume 81.6 fL (80.0-100.0); Mean Platelet Volume 10.4 fL (9.4-12.4); Platelet Count 246 K/uL (130-400); RDW Coefficient of Variation 14.6 % (11.5-14.5); RDW Standard Deviation 42.5 fL (36.4-46.3); Red Blood Count 3.48 M/uL (4.20-5.40); White Blood Count 17.27 K/ul (4.8-10.8)
[2023-06-12 07:45] LABS: Basophils # (auto) 0.03 K/uL (0.00-0.20); Basophils % (auto) 0.2 %; Echinocytes 1+; Immature Granulocytes # (auto) 0.11 K/uL (0.01-0.20); Immature Granulocytes % (auto) 0.6 %; Lymphocytes # (auto) 0.92 K/uL (1.20-3.40); Lymphocytes % (auto) 5.3 %; Monocytes # (auto) 0.35 K/uL (0.11-0.59); Neutrophils # (auto) 15.86 K/uL (1.40-6.50); Neutrophils % (auto) 91.9 %; Polychromasia 1+
[2023-06-12] MEDS: KETOROLAC 30 MG/ML VIAL IV PRN (08:46)
--- NOTE | 2023-06-12 08:48 | Obstetrical Progress Note ---
Date of Service <Erendira Rios MD - Last Filed: 06/12/23 08:48> June 12, 2023 Assessment & Plan <Erendira Rios MD - Last Filed: 06/12/23 08:48> (1) Encounter for assessment: Plan Patient with the above mentioned history and findings was evaluated at bedside and found awake, alert, oriented in all spheres, afebrile, and in no acute distress. Vital signs showed no fever and blood pressures remained stable. Her blood type is O pos and today's hemoglobin is adequate at 9.5 g/dL. Serologies are negative for GBS and she is RI. Overall, patient is doing well clinically. Therefore, will encourage ambulation as tolerated and will resume regular diet. Nausea and vomiting to be managed with zofran, phenergan for breakthrough nausea, and pepcid. Encouraged patient to ask for Percocet for better pain control if needed. Continue routine pp course. All questions were answered. <Vern Orona MD - Last Filed: 06/14/23 09:10> (1) Encounter for assessment: Subjective <Erendira Rios MD - Last Filed: 06/12/23 08:48> Tati is a 22 y/o female who is now POD # 1 following pLTCS at 40+ weeks. Reports feeling well overall this morning. Refers moderate abdominal cramping & 6/10 pain. Has not used Percocet but open to trying it. Voiding spontaneously. Tolerating meals overnight and able to ambulate some. Feeling significant nausea and has vomited as well. Has passed gas but no bm yet. Some persistent lochia with some improvement this morning. . Constitutional: no fever, no chills or no sweats Denies shortness of breath or difficulty breathing Cardiovascular: no chest pain or no palpitations Breast: no breast pain Genitourinary (female): no dysuria Neurologic: no headache(s) Denies changes in vision Physical Exam <Erendira Rios MD - Last Filed: 06/12/23 08:48> General: Alert. Oriented to person, time, and place. Afebrile. No acute distress. Eyes: pupils equal and reactive to light bilaterally, extraocular movements intact. Cardiac: Regular rate and rhythm, no murmurs/rubs/gallops. Respiratory: Clear to auscultation bilaterally a/p, no wheezes/rales/rhonchi. No increased work of breathing. Symmetrical chest rise. No respiratory distress. Abdomen: Soft, nontender, nondistended. Bowel sounds present. Low transverse surgical scar covered by JD dressing which is c/d/i Uterus: Uterine fundus firm, tender, and palpable at umbilicus. Lower Extremities: Mild bilateral LE swelling. No deep calf pain. Tigist's negative bilaterally. Psych: Euthymic affect. Mood and affect congruence. Regular speech rate and content. Results & Data <Erendira Rios MD - Last Filed: 06/12/23 08:48> Vital Signs (Past 12 Hours) Vital Signs Temp Pulse Resp BP Pulse Ox O2 Del Method 06/12/23 07:19 37.0 C 103 H 18 121/80 98 Room Air 06/12/23 04:00 37.0 C 94 H 16 130/83 Room Air 06/11/23 23:45 14 99 06/11/23 23:30 36.8 C 76 14 129/81 99 Room Air 06/11/23 22:05 16 97 06/11/23 21:00 16 99 Supervising Physician <Vern Orona MD - Last Filed: 06/14/23 09:10> Co-Signing Physician Notes Patient seen with resident and agree with the above findings and plan. Routine care
[2023-06-12] MEDS: MoRPHine SULFATE PF 1 MG/ML 10 ML AMP/VIAL INT SPINAL ONE (08:50)
[2023-06-12] MEDS: SODIUM CHLORIDE 0.9% 1,000 ML IV SCH (08:50)
[2023-06-12 10:58] LABS: Alanine Aminotransferase 8 U/L (7-52); Albumin Globulin Ratio 0.9 (0.9-2); Albumin Level 2.5 gm/dl (3.4-5.0); Alkaline Phosphatase 123 U/L (34-104); Anion Gap 8 (3-11); Aspartate Aminotransferase 18 U/L (13-39); Bilirubin,Total 0.3 mg/dl (0.2-1.0); Blood Urea Nitrogen 9 mg/dl (6-23); Carbon Dioxide 22 mmol/L (21-32); Chloride 105 mmol/L (98-107); Creatinine Clr Calc Pharmacy 163.7 ml/min; Est GFR (African American) > 150.0 ml/min; Est GFR (Non-African American) 135.7 ml/min; Globulin 2.7 gm/dl (2.5-4.0); Glucose 113 mg/dl (70-99(Fasting)); Potassium 3.6 mmol/L (3.5-5.1); Sodium 135 mmol/L (136-145); Total Protein 5.2 gm/dl (6.0-8.3)
[2023-06-12] MEDS: bisacodyL 5 MG TABEC PO SCH (21:33)
[2023-06-12] MEDS: oxyCODONE/ACETAMINOPHEN 5mg/325mg TAB PO PRN (23:59)
[2023-06-13] MEDS ORDERED: bisacodyL 10 MG SUPP PR PRN (04:21)
--- NOTE | 2023-06-13 06:30 | Obstetrical Progress Note ---
Date of Service June 13, 2023 Assessment & Plan (1) Encounter for assessment: Plan Desires D/C tomorrow, feeling better from n/v/d yesterday but only taking clears and crackers successfully so far, will advance diet today. Subjective Ambulation: ambulating normally Voiding: no voiding problems Passing Gas:: Yes Diet Tolerance:: regular diet Lochia:: Small Feeding Type:: breast feeding Physical Exam Constitutional WD/WN, vitals as above Eyes PERRL, conjunctivae normal, anicteric sclerae Neck normal visual inspection Respiratory normal respiratory effort and able to speak in complete sentences; no respiratory distress and no labored breathing Cardiovascular Rate/Rhythm: regular rate and regular rhythm Extremities: no edema Chest (Breasts) Chest: normal inspection of chest Gastrointestinal (Abdomen) Inspection/Auscultation: abdomen normal to inspection Soft, postgravid JD Dressing in place, clean/working Psychiatric A+Ox3, euthymic affect Genitourinary OB Exam Abdomen: + fundal height Fundus: + firm and + relation to umbilicus (fundus just below umbilicus); not tender Results & Data Vital Signs (Past 12 Hours) Vital Signs Temp Pulse Resp BP Pulse Ox O2 Del Method 06/13/23 03:15 98.2 F 65 18 128/78 99 Room Air 06/12/23 23:40 98.4 F 67 18 123/79 99 Room Air 06/12/23 20:30 97.9 F 80 18 109/75 98 Room Air
[2023-06-13 06:51] LABS: Hemoglobin 7.7 g/dl (12.0-16.0)
[2023-06-13] MEDS: IBUPROFEN 600 MG TAB PO PRN (08:15)
--- NOTE | 2023-06-14 04:44 | Obstetrical Progress Note ---
Date of Service June 14, 2023 Assessment & Plan (1) Encounter for assessment: Plan 22 y/o POD#3: Eating well, voiding well, ambulating well Vitals reviewed, WNL Pain well controlled with percocet and motrin Routine post op care - OOB, ambulation, diet progression as tolerated Will have 6 week follow up with Dr. Mclaughlin Subjective Ambulation: ambulating normally Voiding: no voiding problems Passing Gas:: Yes Diet Tolerance:: regular diet Lochia:: Small Feeding Type:: bottle feeding pain well controlled with percocet and motrin Review of Systems -Denies fever or chills -Denies dyspnea, chest pain, or palpitations -Denies breast pain -Denies dysuria -Denies headache or changes in vision - nausea, vomiting, diarrhea resolved Physical Exam General: Alert and oriented. No acute distress Cardiac: Regular rate and rhythm, no murmurs appreciated Respiratory: Lungs clear to auscultation bilaterally, No increased work of breathing Abdominal: Soft, non-tender, non-distended. Bowel sounds present. Uterus: Uterine fundus firm, palpable below umbilicus Extremities: No lower extremity edema, calves non-tender bilaterally Results & Data Vital Signs (Past 12 Hours) Vital Signs Temp Pulse Resp BP Pulse Ox O2 Del Method 06/14/23 03:15 36.8 C 80 18 113/76 98 Room Air 06/13/23 23:30 36.6 C 59 L 18 129/80 98 Room Air 06/13/23 20:40 36.6 C 91 H 18 119/71 99 Room Air 06/13/23 16:45 36.7 C 59 L 16 127/82
--- NOTE | 2023-06-14 15:37 | Communication Note ---
Date of Service: June 14, 2023 called by nursing that patient written to go home but no percocet script sent. checked on papdmp. script sent. apparently pt doing well and nurse to health counselor about use of narcotic
[2023-06-14] MEDS: BENZOCAINE 20% SPRY 85 APPLN/85 GM CAN EXT PRN (15:44)
== END 2023-06-14 15:50 | disposition home or self-care (01) | DRG 788 ==
LOC: OPB 12:02 → 4S1 12:13 → 4E2 06-11 07:08